=== PATIENT | female | born 1960 | race Caucasian/White ===

== ENCOUNTER 2019-09-17 10:29 | Day surgery (SDC) | payer OTHER ==
[2019-09-16 17:24] VITALS: BMI 24.0
[2019-09-17 13:13] VITALS: TEMP 98.1
[2019-09-17 15:07] VITALS: BP 133/61; PULSE 69
--- NOTE | 2019-09-20 16:39 | PATH ---
Surgical Pathology Report Patient Name: SCOTT BARROW [facility]. Rec. #: [id number] /Age/Gender: 1960 (Age: 59) / F Account: [id number] Location: ASU-ENDOSCOPY Taken: 09/17/2019 Received: 09/17/2019 Reported: 09/20/2019 Physicians: Willa Mcmullen M.D. Specimen(s) Received CECUM POLYP Clinical History Screening colonoscopy Postoperative diagnosis: Colon polyp, diverticulosis Final Diagnosis CECUM, POLYP, BIOPSY: POLYPOID COLONIC MUCOSA WITH MILD SUPERFICIAL HYPERPLASTIC FEATURES. Electronically Signed Yodit Caceres M.D. Gross Description Received in formalin, labeled "cecum polyp biopsy" is a hackett, irregular portion of soft tissue measuring 0.3 cm. in greatest dimension. The specimen is submitted in toto in one cassette. /09/17/201909/17/2019
== END 2019-09-17 14:00 | disposition home or self-care (01) ==
LOC: JASU-ENDO 10:29
PROVIDERS: ATTEND Internal Medicine Gastroenterology
PROC: 0DBE8ZX Excision of Large Intestine, Via Natural or Artificial Opening Endoscopic, Diagnostic (ICD-10-PCS; principal; 2019-09-17 11:00)
DX: Z12.11 Encounter for screening for malignant neoplasm of colon (principal); D12.6 Benign neoplasm of colon, unspecified; K57.30 Diverticulosis of large intestine without perforation or abscess without bleeding; K64.8 Other hemorrhoids
CPT/HCPCS: 88305-TC

== ENCOUNTER 2020-07-13 09:16 | Inpatient (IN) | payer OTHER ==
--- NOTE | 2020-07-13 09:27 | PDOC ---
History of Present Illness - General Chief Complaint: Abnormal Lab Results (Outside) Stated Complaint: SENT BY PCP Time Seen by Provider: 07/13/20 09:26 - History of Present Illness Initial Comments: 59 YOF h/o ESRD presents to ER from [employer] for laboratory abnormalities. Patient has ESRD and is scheduled to begin dialysis however yesterday presented to [employer] [facility], got labs showing anemia and uremia. Dr. Foley sent patient to ER for correction of these issues. Patient denies CP, SOB, N/V/D, fever or chills. ROS otherwise negative Past History - Medical History Allergies/Adverse Reactions: Allergies Allergy/AdvReac Type Severity Reaction Status Date / Time adhesive tape Allergy Severe Rash Verified 07/13/20 09:18 erythromycin base AdvReac Severe Verified 07/13/20 09:18 [Erythromycin Base] Home Medications: Ambulatory Orders Labetalol HCl 200 mg PO TID 05/06/12 Nifedipine [Procardia Xl] 30 mg PO DAILY 05/06/12 Tacrolimus 5 mg PO BID 05/06/12 predniSONE [Deltasone -] 5 mg PO DAILY 05/06/12 Glipizide 5 mg PO BID 09/17/19 Cinacalcet HCl [Sensipar -] 30 mg PO PRN 07/13/20 Anemia: Yes (YEARS AGO) Asthma: No Cancer: Yes (RENAL CANCER) Cardiac Disorders: No CVA: No COPD: No CHF: No Dementia: No Diabetes: Yes (NIDD) GI Disorders: No Disorders: Yes HTN: Yes Hypercholesterolemia: Yes Liver Disease: No Seizures: No Thyroid Disease: Yes (HYPOTHYROIDISM) - Surgical History Abdominal Surgery: No Appendectomy: No Cardiac Surgery: No Cholecystectomy: No Lung Surgery: No Neurologic Surgery: No Orthopedic Surgery: No - Psycho-Social/Smoking History Smoking History: Never smoked Have you smoked in the past 12 months: No - Substance Abuse Hx (Audit-C & DAST Scrn) How often the patient has a drink containing alcohol: Never Score: In Men: 4 or > Positive; In Women: 3 or > Positive: 0 Screen Result (Pos requires Nsg. Audit-10AR): Negative *Physical Exam - Vital Signs Last Vital Signs Temp Pulse Resp BP Pulse Ox 98.3 F 77 18 112/58 L 99 07/13/20 09:19 07/13/20 09:19 07/13/20 09:19 07/13/20 09:19 07/13/20 09:19 - Physical Exam General Appearance: Yes: Nourished, Appropriately Dressed HEENT: positive: EOMI, WINIFRED, Normal ENT Inspection, Normal Voice Neck: positive: Trachea midline, Normal Thyroid Respiratory/Chest: positive: Lungs Clear, Normal Breath Sounds Cardiovascular: positive: Regular Rhythm, Regular Rate, S1, S2 Gastrointestinal/Abdominal: positive: Normal Bowel Sounds, Flat, Soft Musculoskeletal: positive: Normal Inspection Extremity: positive: Normal Capillary Refill, Normal Inspection Integumentary: positive: Normal Color, Dry, Warm Neurologic: positive: tearer press clipping II-XII NML intact, Fully Oriented, Alert, Normal Mood/Affect, Normal Response, Motor Strength 01/31 ED Treatment Course - LABORATORY CBC & Chemistry Diagram: 07/13/20 09:42 07/13/20 09:44 Medical Decision Making - Medical Decision Making 59 YOF h/o ESRD presents for laboratory abnormalities - vitals wnl - exam unremarkable - labs, admit to med surg Discharge - Discharge Information Problems reviewed: Yes Clinical Impression/Diagnosis: Uremia - Follow up/Referral - Patient Discharge Instructions - Post Discharge Activity
[2020-07-13 09:52] LABS: VENOUS BASE EXCESS -12.7 mmol/L (-2-2); VENOUS O2 SATURATION 73.5 % (70-80); VENOUS PCO2 35.4 mmHg (38-52); VENOUS PH 7.217 (7.310-7.410)
[2020-07-13 10:00] LABS: BASO % 0.7 % (0-2.0); EOS % 1.8 % (0-4.5); HEMATOCRIT 26.6 % (32.4-45.2); HEMOGLOBIN 8.6 GM/dL (10.7-15.3); LYMPH % 23.4 % (8-40); MCH 29.1 pg (25.7-33.7); MCHC 32.5 g/dl (32.0-36.0); MEAN CELL VOLUME 89.3 fl (80-96); MONO % 5.6 % (3.8-10.2); NEUT % 68.5 % (42.8-82.8); PLATELET COUNT 234 K/MM3 (134-434); RBC 2.97 M/mm3 (3.60-5.2); RDW 14.3 % (11.6-15.6); WHITE BLOOD COUNT 10.7 K/mm3 (4.0-10.0)
[2020-07-13 10:03] LABS: INR 0.91 (0.83-1.09)
[2020-07-13 10:06] LABS: ACTIVATED PTT 26.3 SECONDS (25.2-36.5)
[2020-07-13 10:31] LABS: ALBUMIN 3.2 g/dl (3.4-5.0); BILIRUBIN,TOTAL 0.6 mg/dL (0.2-1); BLOOD UREA NITROGEN 79.8 mg/dL (7-18); CALCIUM 7.9 mg/dL (8.5-10.1); CREATININE 5.3 mg/dL (0.55-1.3); MAGNESIUM 2.4 mg/dL (1.8-2.4); PHOSPHOROUS 5.2 mg/dL (2.5-4.9); POTASSIUM 4.5 mmol/L (3.5-5.1); TOT PROT 6.5 g/dl (6.4-8.2); URIC ACID 6.2 mg/dL (2.6-7.2)
--- NOTE | 2020-07-13 10:45 | PDOC ---
Documentation entered by Raoul Alfaro SCRIBE, acting as scribe for Fernando Overton MD. Fernando Overton MD: This documentation has been prepared by the dixieeDominic Angel, SCRIBE, under my direction and personally reviewed by me in its entirety. I confirm that the documentation accurately reflects all work, treatment, procedures, and medical decision making performed by me. Attending Attestation - Resident Resident Name: NaveenMelchor gómez - ED Attending Attestation I have performed the following: I have examined & evaluated the patient, The case was reviewed & discussed with the resident, I agree w/resident's findings & plan, Exceptions are as noted - HPI HPI: 07/13/20 10:34 The patient is a 59 year old female with a significant past medical history of renal cancer, NIDD, hypothyroidism, bilateral renal transplant 10 years ago who was sent to the ED by PCP for dialysis. The patients kidney activity has been monitored by and noticed the patient needed dialysis due to renal failure. The patient comes in with no complaints, no pain at transplant sites or leg swelling. The patient denies SOB, fever/chills, N/V/D, cough, chest pain, or abdominal pain. PCP: Ade Smith 07/13/20 10:34 - Physicial Exam PE: 07/13/20 10:25 GENERAL: The patient is awake, alert, and fully oriented, Nontoxic - in no acute distress. HEAD: Normocephalic, atraumatic. EYES: extraocular movements intact, sclera anicteric, conjunctiva clear. ENT: Normal voice, Moist mucous membranes. NECK: Normal range of motion, supple LUNGS: Breath sounds equal, clear to auscultation bilaterally. No wheezes, no rhonchi, no rales. HEART: Regular rate and rhythm, normal S1 and S2 without murmur, rub or gallop. ABDOMEN: Soft, nontender, No guarding, no rebound. No CVA tenderness EXTREMITIES: Normal range of motion, no edema. NEUROLOGICAL: No facial assymetry, Normal speech, PSYCH: Normal mood, normal affect. SKIN: Warm, Dry, normal turgor, - Medical Decision Making 07/13/20 10:25 We will check the patient's electrolytes to rule out metabolic derangement EKG to screen for hyperkalemia No signs of fluid overload, pulmonary edema If metabolically deranged anticipate admission for dialysis Heart Score/ECG Review - ECG Impressions Comment:: 07/13/20 10:30 Twelve-lead EKG was performed and reviewed by me. There is normal sinus rhythm with a normal rate. Rate of 76 Abnormal R wave progression
--- NOTE | 2020-07-13 11:55 | SPA.PREOP ---
- PRE-OP NOTE Dx: CKD. h/o bilateral renal transplant 10 years ago Planned Procedure: Permacath Insertion 07/13/2020 Surgeon: Robby Godinez Last Vital Signs Temp Pulse Resp BP Pulse Ox 98.3 F 71 18 134/74 98 07/13/20 09:19 07/13/20 10:25 07/13/20 10:25 07/13/20 10:25 07/13/20 10:25 Lab Results WBC 10.7 K/mm3 (4.0-10.0) H 07/13/20 09:42 RBC 2.97 M/mm3 (3.60-5.2) L 07/13/20 09:42 Hgb 8.6 GM/dL (10.7-15.3) L 07/13/20 09:42 Hct 26.6 % (32.4-45.2) L D 07/13/20 09:42 MCV 89.3 fl (80-96) 07/13/20 09:42 MCHC 32.5 g/dl (32.0-36.0) 07/13/20 09:42 RDW 14.3 % (11.6-15.6) 07/13/20 09:42 Plt Count 234 K/MM3 (134-434) D 07/13/20 09:42 INR 0.91 (0.83-1.09) 07/13/20 09:42 Sodium 140 mmol/L (136-145) 07/13/20 09:44 Potassium 4.5 mmol/L (3.5-5.1) 07/13/20 09:44 Chloride 114 mmol/L (98-107) H 07/13/20 09:44 Carbon Dioxide 16 mmol/L (21-32) L 07/13/20 09:44 Anion Gap 10 MMOL/L (8-16) 07/13/20 09:44 BUN 79.8 mg/dL (7-18) H 07/13/20 09:44 Creatinine 5.3 mg/dL (0.55-1.3) H 07/13/20 09:44 Random Glucose 170 mg/dL (74-106) H 07/13/20 09:44 Calcium 7.9 mg/dL (8.5-10.1) L 07/13/20 09:44 Blood Type O NEGATIVE 07/13/20 09:42 Antibody Screen Negative 07/13/20 09:42 Laboratory Tests 07/13/20 11:45 SARS-CoV-2 (PCR) Pending - ASSESSMENT/PLAN 1. NPO 2. GI/DVT PPX 3. Medical optimization / clearance 4. Consent to be obtained by surgeon after risks, benefits and alternatives discussed with patient and or Health Care Proxy. 5. Rapid Covid test pending Visit type - Case Type Case Type: ED Admission - Emergency Emergency Visit: Yes ED Registration Date: 07/13/20 Care time: The patient presented to the Emergency Department on the above date and was hospitalized for further evaluation of their emergent condition. - New patient This patient is new to me today: Yes Date on this admission: 07/13/20
--- NOTE | 2020-07-13 11:57 | HP ---
CHIEF COMPLAINT: generalized weakness PCP: Nephrology: Dr. Ade Foley HISTORY OF PRESENT ILLNESS: Patient is a 59 year old female with history of ESRD (s/p renal transplant) renal cell carcinoma (s/p partial nephrectomy), diabetes mellitus (non insulin dependent) hypertension, anemia, ?hypothyroidism, presents at behest of her division chief Dr. Bella to initiate hemodialysis. Patient had labs drawn in office concerning for uremia. She endorses some fatigue, however otherwise states she is in usual state of health. Denies subjective fevers, chills. ER course was notable for: (1) Nephrology consult (2) (3) Recent Travel: denies PAST MEDICAL HISTORY: ESRD, renal cell carcinoma, diabetes mellitus, hypertension, anemia PAST SURGICAL HISTORY: renal transplant,, partial nephrectomy, hysterectomy Social History: Lives at home with family. Independent in activities of daily living Smoking: Denies Alcohol:Denies Drugs: Denies Allergies adhesive tape Allergy (Severe, Verified 07/13/20 09:18) Rash erythromycin base [Erythromycin Base] Adverse Reaction (Severe, Verified 07/13/20 09:18) UPSET STOMACH HOME MEDICATIONS: Home Medications Medication Instructions Recorded Labetalol HCl 200 mg PO TID 05/06/12 Nifedipine [Procardia Xl] 30 mg PO DAILY 05/06/12 Tacrolimus 5 mg PO BID 05/06/12 predniSONE [Deltasone -] 5 mg PO DAILY 05/06/12 Glipizide 5 mg PO BID 09/17/19 Cinacalcet HCl [Sensipar -] 30 mg PO PRN 07/13/20 REVIEW OF SYSTEMS CONSTITUTIONAL: Admits: fatigue. Absent: fever, chills, diaphoresis, malaise, loss of appetite, weight change HEENT: Absent: rhinorrhea, nasal congestion, throat pain, throat swelling, difficulty swallowing, mouth swelling, ear pain, eye pain, visual changes CARDIOVASCULAR: Absent: chest pain, syncope, palpitations, irregular heart rate, lightheadedness, peripheral edema RESPIRATORY: Absent: cough, shortness of breath, dyspnea with exertion, orthopnea, wheezing, stridor, hemoptysis GASTROINTESTINAL: Absent: abdominal pain, abdominal distension, nausea, vomiting, diarrhea, constipation, melena, hematochezia GENITOURINARY: Absent: dysuria, frequency, urgency, hesitancy, hematuria, flank pain, genital pain MUSCULOSKELETAL: Absent: myalgia, arthralgia, joint swelling, back pain, neck pain SKIN: Absent: rash, itching, pallor HEMATOLOGIC/IMMUNOLOGIC: Absent: easy bleeding, easy bruising, lymphadenopathy, frequent infections ENDOCRINE: Absent: unexplained weight gain, unexplained weight loss, heat intolerance, cold intolerance NEUROLOGIC: Absent: headache, focal weakness or paresthesias, dizziness, unsteady gait, seizure, mental status changes, bladder or bowel incontinence PSYCHIATRIC: Absent: anxiety, depression, suicidal or homicidal ideation, hallucinations. PHYSICAL EXAMINATION Vital Signs - 24 hr 07/13/20 07/13/20 09:19 10:25 Temperature 98.3 F Pulse Rate 77 Pulse Rate [ 71 Apical] Respiratory 18 18 Rate Blood Pressure 112/58 L Blood Pressure 134/74 [Right Arm] O2 Sat by Pulse 99 98 Oximetry (%) GENERAL: Awake, alert, and fully oriented, in no acute distress. HEAD: Normal with no signs of trauma. EYES: Pupils equal, round and reactive to light, extraocular movements intact, sclera anicteric, conjunctiva clear. No lid lag. EARS, NOSE, THROAT: Ears normal, nares patent, oropharynx clear without exudates. Moist mucous membranes. NECK: Normal range of motion, supple without lymphadenopathy, JVD, or masses. LUNGS: Breath sounds equal, clear to auscultation bilaterally. No wheezes, and no crackles. No accessory muscle use. HEART: Regular rate and rhythm, normal S1 and S2 without murmur, rub or gallop. ABDOMEN: Soft, nontender, not distended, normoactive bowel sounds, no guarding, no rebound, no masses. No hepatomegaly or splenomegaly. MUSCULOSKELETAL: Normal range of motion at all joints. No bony deformities or tenderness. No CVA tenderness. UPPER EXTREMITIES: 2+ pulses, warm, well-perfused. No cyanosis. No clubbing. No peripheral edema. LOWER EXTREMITIES: 2+ pulses, warm, well-perfused. No calf tenderness. No peripheral edema. NEUROLOGICAL: Cranial nerves II-XII intact. Normal speech. Normal gait. PSYCHIATRIC: Cooperative. Good eye contact. Appropriate mood and affect. SKIN: Warm, dry, normal turgor, no rashes or lesions noted, normal capillary refill. Laboratory Results - last 24 hr 07/13/20 07/13/20 07/13/20 09:42 09:42 09:42 WBC 10.7 H RBC 2.97 L Hgb 8.6 L Hct 26.6 L D MCV 89.3 MCH 29.1 MCHC 32.5 RDW 14.3 Plt Count 234 D MPV 8.0 D Absolute Neuts (auto) 7.4 Neutrophils % 68.5 Lymphocytes % 23.4 Monocytes % 5.6 Eosinophils % 1.8 Basophils % 0.7 Nucleated RBC % 0 PT with INR 11.00 INR 0.91 PTT (Actin FS) 26.3 VBG pH 7.217 L POC VBG pCO2 35.4 L POC VBG pO2 45.8 VBG HCO3 14.1 L VBG O2 Sat (Mitali) 73.5 VBG Base Excess -12.7 L Sodium Potassium Chloride Carbon Dioxide Anion Gap BUN Creatinine Est GFR (CKD-EPI)AfAm Est GFR (CKD-EPI)NonAf Random Glucose Lactic Acid Uric Acid Calcium Phosphorus Magnesium Iron TIBC Iron Saturation Unsaturated IBC Total Bilirubin AST ALT Alkaline Phosphatase Total Protein Albumin Blood Type Antibody Screen 07/13/20 07/13/20 07/13/20 09:42 09:44 09:44 WBC RBC Hgb Hct MCV MCH MCHC RDW Plt Count MPV Absolute Neuts (auto) Neutrophils % Lymphocytes % Monocytes % Eosinophils % Basophils % Nucleated RBC % PT with INR INR PTT (Actin FS) VBG pH POC VBG pCO2 POC VBG pO2 VBG HCO3 VBG O2 Sat (Mitali) VBG Base Excess Sodium 140 Potassium 4.5 Chloride 114 H Carbon Dioxide 16 L Anion Gap 10 BUN 79.8 H Creatinine 5.3 H Est GFR (CKD-EPI)AfAm 9.44 Est GFR (CKD-EPI)NonAf 8.15 Random Glucose 170 H Lactic Acid 1.0 Uric Acid 6.2 Calcium 7.9 L Phosphorus 5.2 H Magnesium 2.4 Iron 61 TIBC 203 L Iron Saturation 30 Unsaturated IBC 142 L Total Bilirubin 0.6 AST 24 ALT 74 H Alkaline Phosphatase 321 H Total Protein 6.5 Albumin 3.2 L Blood Type O NEGATIVE Antibody Screen Negative ASSESSMENT/PLAN: Patient is a 59 year old female with history of ESRD (s/p renal transplant) renal cell carcinoma (s/p partial nephrectomy), diabetes mellitus (non insulin dependent) hypertension, anemia, ?hypothyroidism, presents at behest of her division chief Dr. Bella to initiate hemodialysis. ESRD -Nephrology consult appreciated. Patient will be initiated for first session hemodialysis today -Vascular surgery consult (Dr. Godinez) for permacath placement -Maintain NPO, pending surgical evaluation -NAGMA noted, will initiate bicarbonate in normal saline -Continue Tacrolimus, Prednisone -Pantoprazole 40mg IV daily while receiving steroids, and NPO Fatigue -In setting of leukocytosis, however patient is afebrile. Well, nontoxic appearing. -Chest radiograph does not reveal acute infiltrates -Obtain urinalysis, urine culture -Monitoring off antibiotics for now Normocytic anemia -At baseline (reportedly Hgb 8.5 in 02/2020 outpatient) -Colonscopy last year with Dr. Mcmullen reportedly revealed only a polyp which patient believes was benign. She denies any hematochezia, melenic stools. -Follow iron studies, CBC. Diabetes mellitus -Insulin sliding scale ACHS -Fingerstick blood glucose ACHS Hypertension -Continue home Nifedipine, Labetalol FEN -Bicarbonate drip, pending hemodialysis -Follow BMP -NPO, pending surgical evaluation Prophylaxis -SCDs, pending surgical evaluation Disposition Admit to medical surgical floor Family Medical History Family History: Unremarkable Visit type - Emergency Visit Emergency Visit: Yes ED Registration Date: 07/13/20 Care time: The patient presented to the Emergency Department on the above date and was hospitalized for further evaluation of their emergent condition. - New Patient This patient is new to me today: Yes Date on this admission: 07/13/20 - Critical Care Critical Care patient: No ATTENDING PHYSICIAN STATEMENT I saw and evaluated the patient. I reviewed the resident's note and discussed the case with the resident. I agree with the resident's findings and plan as documented. SUBJECTIVE: OBJECTIVE: ASSESSMENT AND PLAN:
[2020-07-13] MEDS ORDERED: PANTOPRAZOLE SODIUM 40 MG/100 ML BAG IVPB ONE (11:59)
[2020-07-13] MEDS ORDERED: SODIUM BICARBONATE 8.4% - 150 MEQ in DEXTROSE 5%-WATER - 1,000 ML IV SCH (12:00)
[2020-07-13] MEDS ORDERED: TACROLIMUS ANHYDROUS 1 MG CAPSULE PO SCH (12:00)
[2020-07-13] MEDS ORDERED: predniSONE 5 MG TABLET (UD) PO SCH (12:00)
[2020-07-13] MEDS ORDERED: PANTOPRAZOLE SODIUM 40 MG VIAL IVPUSH SCH (12:00)
[2020-07-13] MEDS ORDERED: DEXTROSE 5%-WATER - 1,000 ML with SODIUM BICARBONATE 8.4% - 150 MEQ IV SCH (12:00)
--- NOTE | 2020-07-13 12:25 | CON.NEP ---
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 Seen and examined at the bedside. She denies any pain, shortness of breath, nausea or vomiting. Has some anorexia and weakness. Making less urine now. Denies any leg swelling. No flank pain. Was been taking tacrolimus and prednisone. Has old AVF that is no longer working. - History Source History Provided By: Patient Limitations to Obtaining History: No Limitations - Alcohol/Substance Use Hx Alcohol Use: No - Smoking History Smoking history: Never smoked Have you smoked in the past 12 months: No Home Medications - Allergies Allergies/Adverse Reactions: Allergies Allergy/AdvReac Type Severity Reaction Status Date / Time adhesive tape Allergy Severe Rash Verified 07/13/20 09:18 erythromycin base AdvReac Severe Verified 07/13/20 09:18 [Erythromycin Base] - Home Medications Home Medications: Ambulatory Orders Labetalol HCl 200 mg PO TID 05/06/12 Nifedipine [Procardia Xl] 30 mg PO DAILY 05/06/12 Tacrolimus 5 mg PO BID 05/06/12 predniSONE [Deltasone -] 5 mg PO DAILY 05/06/12 Glipizide 5 mg PO BID 09/17/19 Cinacalcet HCl [Sensipar -] 30 mg PO PRN 07/13/20 Family Medical History Family History: Unremarkable Review of Systems - Review of Systems Constitutional: reports: Loss of Appetite, Weakness. denies: Chills, Fever Eyes: reports: No Symptoms HENT: reports: No Symptoms Neck: reports: No Symptoms Cardiovascular: reports: No Symptoms Respiratory: reports: No Symptoms Gastrointestinal: reports: No Symptoms Genitourinary: reports: No Symptoms Musculoskeletal: reports: No Symptoms Integumentary: reports: No Symptoms Neurological: reports: No Symptoms Nephrology Consult - Height Height: 5 ft 1 in - Weight Weight: 57.606 kg - BMI Body Mass Index (BMI): 24.0 - Lab Results CBC,BMP: CBC, BMP 07/13/20 09:42 07/13/20 09:44 Anion Gap: Anion Gap Anion Gap 10 MMOL/L (8-16) 07/13/20 09:44 - Physical Examination Vital Signs: Vital Signs Temperature 98.0 F 07/13/20 12:17 Pulse Rate 71 07/13/20 12:17 Respiratory Rate 18 07/13/20 12:17 Blood Pressure 141/74 07/13/20 12:17 O2 Sat by Pulse Oximetry (%) 98 07/13/20 12:17 Constitutional: Yes: No Distress, Calm Eyes: Yes: Conjunctiva Clear HENT: Yes: Atraumatic, Normocephalic Neck: Yes: Supple Cardiovascular: Yes: Regular Rate and Rhythm. No: Murmur, Rub Respiratory: Yes: Regular, CTA Bilaterally. No: Rales, Rhonchi, SOB Gastrointestinal: Yes: Soft. 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 1. 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 Anemia in CKD. 3. Renal Transplant 4. Leukocytosis w/o fever 5. Hypertension 6. DM type 2 Pt is planned for tunneled catheter insertion later this afternoon. Keep NPO. Will arrange for initial HD treatment following catheter placement this afternoon. Start bicarb gtt for Metabolic acidosis, can stop after dialysis. Renal diet once out of the OR. Continue Tacrolimus and prednisone for now. Check US of the transplanted kidneys. Continue home antihypertensives Continue Sensipar 30mg daily Check UA and urine culture Will need outpatient HD unit placement at [facility]. Thank you Otoniel Morris DO
[2020-07-13] MEDS ORDERED: SODIUM CHLORIDE 250 ML IV PRN ×2 (12:33→16:33)
[2020-07-13] MEDS ORDERED: EPOETIN ALFA 20,000 UNIT/1 ML VIAL IVPUSH ONE ×2 (12:33→17:30)
--- NOTE | 2020-07-13 13:34 | EKG ---
Test Reason : Blood Pressure : / mmHG Vent. Rate : 076 BPM Atrial Rate : 076 BPM P-R Int : 154 ms QRS Dur : 084 ms QT Int : 408 ms P-R-T Axes : 065 023 067 degrees QTc Int : 459 ms NORMAL SINUS RHYTHM SEPTAL INFARCT (CITED ON OR BEFORE 16-AUG-2008) ABNORMAL ECG WHEN COMPARED WITH ECG OF 02-MAY-2012 09:54, NONSPECIFIC T WAVE ABNORMALITY, WORSE IN INFERIOR LEADS NONSPECIFIC T WAVE ABNORMALITY NOW EVIDENT IN LATERAL LEADS QT HAS LENGTHENED Confirmed by YADIEL MARTINEZ MD ([id number]) on 07/13/2020 1:34:07 PM Referred By: Confirmed By:YADIEL MARTINEZ MD
[2020-07-13] MEDS ORDERED: HEPARIN NA (PORCINE) 5,000 UNITS/ML 1ML VIAL ONE (14:08)
[2020-07-13] MEDS ORDERED: LIDOCAINE HCL 1%, 10 MG/ML (20ML VIAL) ONE (14:09)
[2020-07-13] MEDS ORDERED: LIDOCAINE HCL 1%, 10 MG/ML (20ML VIAL) NR ONE (15:58)
[2020-07-13] MEDS ORDERED: ceFAZolin SODIUM 1 GM VIAL IVPB ONE (15:58)
[2020-07-13] MEDS ORDERED: LABETALOL HCL 5 MG/1 ML (100MG/20 ML VIAL) IVPUSH ONE (16:19)
[2020-07-13] MEDS ORDERED: ONDANSETRON 4 MG/2 ML VIAL IVPUSH PRN (16:19)
--- NOTE | 2020-07-13 16:23 | CONSULT ---
Consult - text type - Consultation Consultation Note: 59 year old woman with ESRD and failed renal transplant. She requires access for urgent hemodialysis. PMH reviewed. PE: NAD HEENT WNL, Neck supple. no JVD CHest clear Cor RRR Abd soft Ext both arms with old scars from AV access Imp: ESRD Plan: Placement Permacath today. Evaluate options for new access and plan outpatient surgery
--- NOTE | 2020-07-13 16:23 | OP ---
Operative Note - Note: Operative Date: 07/13/20 Pre-Operative Diagnosis: ESRD Operation: Placement Permacath Findings: Patent right IJV Implants: 19 cm Permacath Post-Operative Diagnosis: Same as Pre-op Surgeon: Robby Godinez Anesthesiologist/CLOTH ROLL WINDER: Amanuel Parekh Anesthesia: MAC
[2020-07-13] MEDS ORDERED: INSULIN SLIDING SCALE (NOVOLOG) 1 VIAL SQ SCH (16:30)
[2020-07-13] MEDS ORDERED: INSULIN (NOVOLOG) ASPART 100 UNITS/ML 10ML VIAL SQ ONE ×2 (17:15)
[2020-07-13] MEDS: INSULIN SLIDING SCALE (NOVOLOG) 1 VIAL SQ SCH (17:15)
--- NOTE | 2020-07-13 17:40 | PN ---
Teaching Attending Note Name of Resident: Froylan Pinto ATTENDING PHYSICIAN STATEMENT I saw and evaluated the patient. I reviewed the resident's note and discussed the case with the resident. I agree with the resident's findings and plan as documented. SUBJECTIVE: Patient seen and examined at bedside, admitted for fatigue, CRIS on CKD w/ uremia sent from [facility] office, requiring HD, vascular surgery/renal on board. VSS. OBJECTIVE: GENERAL: Awake, alert, and fully oriented, in no acute distress. HEAD: Normal with no signs of trauma. EYES: Pupils equal, round and reactive to light, extraocular movements intact, sclera anicteric, conjunctiva clear. No lid lag. EARS, NOSE, THROAT: Ears normal, nares patent, oropharynx clear without exudates. Moist mucous membranes. NECK: Normal range of motion, supple without lymphadenopathy, JVD, or masses. LUNGS: Breath sounds equal, clear to auscultation bilaterally. No wheezes, and no crackles. No accessory muscle use. HEART: Regular rate and rhythm, normal S1 and S2 without murmur, rub or gallop. ABDOMEN: Soft, nontender, not distended, normoactive bowel sounds, no guarding, no rebound, no masses. No hepatomegaly or splenomegaly. MUSCULOSKELETAL: Normal range of motion at all joints. No bony deformities or tenderness. No CVA tenderness. UPPER EXTREMITIES: 2+ pulses, warm, well-perfused. No cyanosis. No clubbing. No peripheral edema. LOWER EXTREMITIES: 2+ pulses, warm, well-perfused. No calf tenderness. No peripheral edema. NEUROLOGICAL: Cranial nerves II-XII intact. Normal speech. Normal gait. PSYCHIATRIC: Cooperative. Good eye contact. Appropriate mood and affect. SKIN: Warm, dry, normal turgor, no rashes or lesions noted, normal capillary refill. Home Medications Medication Instructions Recorded Labetalol HCl 200 mg PO TID 05/06/12 Nifedipine [Procardia Xl] 30 mg PO BID 05/06/12 Tacrolimus 4 mg PO AM 05/06/12 predniSONE [Deltasone -] 5 mg PO DAILY 05/06/12 Glipizide 5 mg PO DAILY 09/17/19 Cinacalcet HCl [Sensipar -] 30 mg PO PRN 07/13/20 Atorvastatin Ca [Lipitor] 20 mg PO DAILY 07/14/20 Tacrolimus 5 mg HS 07/14/20 levoFLOXacin [Levaquin -] 250 mg PO Q48H #4 tablet 07/14/20 ASSESSMENT AND PLAN: 59 F CKD/ESRD requiring HD HTN HLD T2DM Uremia Anemia RCC s/p nephrectomy s/p renal transplant Plan: Hold IVF Restart home BP medications Tele monitoring FOBT for anemia, transfuse w/ goal of >7.0 Cont. Bicarb supplementation Monitor AG and renal function Vascular consult Renal following
[2020-07-13] MEDS ORDERED: ACETAMINOPHEN 325 MG TABLET (FP) PO PRN (17:45)
[2020-07-13] MEDS ORDERED: oxyCODONE HCL 5 MG TABLET PO PRN (17:45)
--- NOTE | 2020-07-13 19:26 | OP ---
DATE OF OPERATION: 07/13/2020 SURGEON: Robby Godinez MD. PROCEDURE: Placement of PermCath. PREOPERATIVE DIAGNOSIS: Renal failure. POSTOPERATIVE DIAGNOSIS: Renal failure. ANESTHESIA: Fractional. ANESTHESIOLOGIST: Amanuel Parekh MD. OPERATIVE PROCEDURE: Following routine patient identification with side and site verification, intravenous sedation was established. The right neck and chest were prepped with ChloraPrep. Timeout was performed. 1% lidocaine was infiltrated in the right lateral neck. Using ultrasound guidance, the right internal jugular vein was cannulated with a micropuncture needle. A wire was passed proximally, and the needle was exchanged for a 5 [place] catheter. Additional lidocaine was infiltrated in the chest wall and a stab wound made. A 19-cm tip-to-cuff PermCath was advanced with a tunneler from chest to neck. A wire was advanced under fluoroscopic guidance through the right atrium into the inferior vena cava. The tract around the wire was dilated, and the introducer was placed into the superior vena cava. The dilator and wire were removed. The catheter was advanced through the introducer, and the tip positioned in the right atrium. The introducer was peeled away. Each lumen was aspirated to check blood flow, and then the catheter was filled with heparin saline solution. The neck wound was closed with a subcuticular suture of 3-0 Vicryl, and the catheter was sutured to the skin at the exit site with 3-0 nylon. Sterile dressing was applied, and the patient was taken to the recovery room for a chest x-ray. Joshua [id number] MTDD
[2020-07-13] MEDS: TACROLIMUS ANHYDROUS 1 MG CAPSULE PO SCH (21:48)
[2020-07-14 02:49] VITALS: BMI 24.4
[2020-07-14] MEDS ORDERED: SODIUM BICARBONATE 8.4% - 150 MEQ in DEXTROSE 5%-WATER - 1,000 ML IV SCH (03:00)
[2020-07-14] MEDS ORDERED: PNEUMOC 13-VAL CONJ-DIP CRM/PF 0.5 ML DISP.SYRIN IM ONE (06:00)
[2020-07-14] MEDS: INSULIN SLIDING SCALE (NOVOLOG) 1 VIAL SQ SCH ×2 (06:06→12:57)
[2020-07-14 09:02] LABS: HEMATOCRIT 26.3 % (32.4-45.2); HEMOGLOBIN 8.7 GM/dL (10.7-15.3); MCHC 33.2 g/dl (32.0-36.0); MEAN CELL VOLUME 87.5 fl (80-96); MEAN PLT VOLUME 8.1 fl (7.5-11.1); PLATELET COUNT 223 K/MM3 (134-434); RDW 13.6 % (11.6-15.6); WHITE BLOOD COUNT 10.4 K/mm3 (4.0-10.0)
--- NOTE | 2020-07-14 09:06 | PN ---
Progress Note (short form) - Note Progress Note: Surgery: Pt without any complaints. Vital Signs Period Temp Pulse Resp BP Sys/Villanueva Pulse Ox Last 24 Hr 97.4 F-99.1 F 60-88 14-20 112-171/58-90 95-100 GEN: A&0x3, NAD Right chest: permacath dressing c/d/i A/p: 59 yo female s/p Right IJ permcath, POD#1 HD treatment completed last pm without any issues, pt tolerated the treatment well. Follow up with Dr. Godinez in office as outpt for any further vascular/HD needs.
[2020-07-14 09:18] LABS: BILIRUBIN,TOTAL 0.5 mg/dL (0.2-1); CREATININE 3.6 mg/dL (0.55-1.3); PHOSPHOROUS 4.8 mg/dL (2.5-4.9); POTASSIUM 3.7 mmol/L (3.5-5.1); TOT PROT 5.9 g/dl (6.4-8.2)
[2020-07-14 09:33] LABS: BLOOD UREA NITROGEN 39.3 mg/dL (7-18)
[2020-07-14] MEDS ORDERED: PT OWN MED DRAWER 7, Y5N ONE (09:41)
[2020-07-14] MEDS ORDERED: SODIUM CHLORIDE 250 ML IV PRN (09:46)
[2020-07-14] MEDS ORDERED: NIFEdipine E.R. 30 MG TABLET PO SCH ×2 (10:00)
[2020-07-14] MEDS ORDERED: PNEUMOCOCCAL 23 VACCINE 0.5 ML VIAL IM ONE (10:00)
[2020-07-14] MEDS ORDERED: predniSONE 5 MG TABLET (UD) PO SCH (10:00)
--- NOTE | 2020-07-14 12:44 | PN ---
Teaching Attending Note Name of Resident: Leydi Pablo ATTENDING PHYSICIAN STATEMENT I saw and evaluated the patient. I reviewed the resident's note and discussed the case with the resident. I agree with the resident's findings and plan as documented. SUBJECTIVE: pt seen and examined, was having HD OBJECTIVE: Last Vital Signs Temp Pulse Resp BP Pulse Ox 98.8 F 78 18 148/77 99 07/14/20 10:05 07/14/20 12:10 07/14/20 12:10 07/14/20 12:10 07/14/20 09:38 GENERAL: Awake, alert, and fully oriented, in no acute distress. Perm-a-cath placed LUNGS: Breath sounds equal, clear to auscultation bilaterally. No wheezes, and no crackles. No accessory muscle use. HEART: Regular rate and rhythm, normal S1 and S2 ABDOMEN: Soft, nontender, not distended LOWER EXTREMITIES: 2+ pulses, warm, well-perfused. No calf tenderness. No peripheral edema. CBCD WBC 10.4 K/mm3 (4.0-10.0) H 07/14/20 08:03 RBC 3.00 M/mm3 (3.60-5.2) L 07/14/20 08:03 Hgb 8.7 GM/dL (10.7-15.3) L 07/14/20 08:03 Hct 26.3 % (32.4-45.2) L 07/14/20 08:03 MCV 87.5 fl (80-96) 07/14/20 08:03 MCHC 33.2 g/dl (32.0-36.0) 07/14/20 08:03 RDW 13.6 % (11.6-15.6) 07/14/20 08:03 Plt Count 223 K/MM3 (134-434) 07/14/20 08:03 MPV 8.1 fl (7.5-11.1) 07/14/20 08:03 CMP Sodium 142 mmol/L (136-145) 07/14/20 08:03 Potassium 3.7 mmol/L (3.5-5.1) 07/14/20 08:03 Chloride 106 mmol/L (98-107) 07/14/20 08:03 Carbon Dioxide 28 mmol/L (21-32) 07/14/20 08:03 Anion Gap 8 MMOL/L (8-16) 07/14/20 08:03 BUN 39.3 mg/dL (7-18) H 07/14/20 08:03 Creatinine 3.6 mg/dL (0.55-1.3) H 07/14/20 08:03 Calcium 8.0 mg/dL (8.5-10.1) L 07/14/20 08:03 Total Bilirubin 0.5 mg/dL (0.2-1) 07/14/20 08:03 AST 18 U/L (15-37) 07/14/20 08:03 ALT 49 U/L (13-61) 07/14/20 08:03 Alkaline Phosphatase 290 U/L (45-117) H 07/14/20 08:03 Total Protein 5.9 g/dl (6.4-8.2) L 07/14/20 08:03 Albumin 3.0 g/dl (3.4-5.0) L 07/14/20 08:03 ASSESSMENT AND PLAN: 59 yo lady with Mhx of ESRD s/p Renal transplant (unknown cause of failure,in 2000 now with progressive decline in renal function, 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 -requesting ID input regarding treatment HTN DM DVT prophylaxis
[2020-07-14] MEDS: PANTOPRAZOLE SODIUM 40 MG VIAL IVPUSH SCH ×2 (13:33→13:45)
[2020-07-14] MEDS: TACROLIMUS ANHYDROUS 1 MG CAPSULE PO SCH (13:36)
[2020-07-14] MEDS: LABETALOL HCL 100 MG TABLET (FP) PO SCH ×2 (13:37→14:28)
--- NOTE | 2020-07-14 13:59 | DS ---
Physical Exam: SUBJECTIVE: Patient seen and examined at bedside. No acute events overnight. OBJECTIVE: Vital Signs Period Temp Pulse Resp BP Sys/Villanueva Pulse Ox Last 24 Hr 97.4 F-99.1 F 60-88 14-20 112-171/67-90 95-100 PHYSICAL EXAM GENERAL: AAOx3, in no acute distress, permacath in place HEENT: NCAT, PERRLA, EOMI, sclera anicteric, conjunctiva clear, oropharynx clear w/o exudates. MMM. NECK: Normal ROM, supple, no lymphadenopathy, JVD, or masses LUNGS: CTABL no wheezes/ rhonchi/ rales. No distress, speaks in full sentences. No increased work of breathing. HEART: RRR, normal S1 S2, no M/R/G, peripheral pulses 2+ and equal b/l ABDOMEN: Soft, NTND, + BS. No guarding or rebound. No hepatomegaly or splenomegaly. MSK: ROM WNL EXTREMITIES: Normal inspection. No peripheral edema. No clubbing or cyanosis. NEUROLOGICAL: CN II-XII intact. Normal speech, no focal sensorimotor deficits. SKIN: Warm, Dry, normal turgor, no rashes or lesions noted LABS Laboratory Results - last 24 hr CBC, BMP 07/14/20 08:03 07/14/20 08:03 07/13/20 07/14/20 07/14/20 17:37 00:43 06:05 WBC RBC Hgb Hct MCV MCH MCHC RDW Plt Count MPV Sodium Potassium Chloride Carbon Dioxide Anion Gap BUN Creatinine Est GFR (CKD-EPI)AfAm Est GFR (CKD-EPI)NonAf POC Glucometer 285 139 85 Random Glucose Calcium Phosphorus Magnesium Total Bilirubin AST ALT Alkaline Phosphatase Total Protein Albumin 07/14/20 07/14/20 07/14/20 08:03 08:03 12:56 WBC 10.4 H RBC 3.00 L Hgb 8.7 L Hct 26.3 L MCV 87.5 MCH 29.0 MCHC 33.2 RDW 13.6 Plt Count 223 MPV 8.1 Sodium 142 Potassium 3.7 Chloride 106 Carbon Dioxide 28 Anion Gap 8 BUN 39.3 H Creatinine 3.6 H Est GFR (CKD-EPI)AfAm 15.07 Est GFR (CKD-EPI)NonAf 13.00 POC Glucometer 124 Random Glucose 86 Calcium 8.0 L Phosphorus 4.8 Magnesium 2.0 Total Bilirubin 0.5 AST 18 ALT 49 Alkaline Phosphatase 290 H Total Protein 5.9 L Albumin 3.0 L HOSPITAL COURSE: 59 yo lady with PMX of ESRD s/p Renal transplant (unknown cause of failure,in 2000 now with progressive decline in renal function, 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 Patient had multiple failed AV Fistuas. Patient had a permacath placed and dialysis was initated and tolerated well. Patient was set up for outpatient Dialysis at [facility] and outpatient follow up with Dr. Morris. Date of Admission:07/13/20 07/13/20-EKG- NSR with Septal Infarct. 07/13/20-No acute chest pathology. slight right rotation. 07/13/20-Flourscopy- 2 views of the chest have been submitted during a R permacath insertion. The tip is inserted in the right atrium. 07/13/20-No pneumothorax is seen. S/p interval permacath insertion. Date of Discharge: 07/14/20 Minutes to complete discharge: 36 Discharge Summary Problems reviewed: Yes Reason For Visit: ACIDOSIS,UREMIA,ESRD Current Active Problems Uremia (Acute) Condition: Stable - Instructions Diet, Activity, Other Instructions: Your visit: You were admitted to the hospital for dialysis access. We placed a permacath for dialysis access in your neck and then you received dialysis. You will continue to receive dialysis through your permacath. Your next dialysis will be on Friday at [facility]. Medications changes: -Dr. Morris will start to decrease your steroid dosage when you see him on Friday07/18/20. -Continue to take all other home medications as prescribed. Follow up: - Please follow-up with Dr. Morris, your doll wig maker, on Friday07/18/20. -Please follow-up with Dr. Godinez, your general surgeon, in 1 week. - Visit with your Primary Care Provider in 1 weeks. If you do not have a primary care provider you may make an appointment with Dr. Rowe at the [facility] clinic located at [address] [place] [address] ([phone]). Additional Instructions: -You are being discharged to your home. -keep area around permacath clean and dry -Please return to the Emergency Department if you experience worsening pain, fevers, chills, shortness of breath, or chest pain, or if you experience any worsening, new or concerning symptoms. Referrals: Mikael Rowe MD [Staff Physician] - 1 Week (f/u ESRD ) Otoniel Morris MD [Staff Physician] - 07/18/20 (f/u ESRD; dialysis ) Robby Godinez MD [Staff Physician] - 1 Week (f/u permacath placement) Disposition: HOME - Home Medications Comprehensive Discharge Medication List: Ambulatory Orders Labetalol HCl 200 mg PO TID 05/06/12 Nifedipine [Procardia Xl] 30 mg PO BID 05/06/12 Tacrolimus 4 mg PO AM 05/06/12 predniSONE [Deltasone -] 5 mg PO DAILY 05/06/12 Glipizide 5 mg PO DAILY 09/17/19 Cinacalcet HCl [Sensipar -] 30 mg PO PRN 07/13/20 Atorvastatin Ca [Lipitor] 20 mg PO DAILY 07/14/20 Tacrolimus 5 mg HS 07/14/20 This patient is new to me today: Yes Date on this admission: 07/14/20 Emergency Visit: No Critical Care patient: No - Discharge Referral Referred to [facility] No ATTENDING PHYSICIAN STATEMENT I saw and evaluated the patient. I reviewed the resident's note and discussed the case with the resident. I agree with the resident's findings and plan as documented. SUBJECTIVE: OBJECTIVE: ASSESSMENT AND PLAN:
--- NOTE | 2020-07-14 15:09 | PN ---
Progress Note (short form) - Note Progress Note: ID CONSULT DICTATED ASYMPTOMATIC BACTERURIA S/P RENAL TRANSPLANT ON IMMUNOSUPPRESSIVE THERAPY IN LIGHT OF CONTINUED IMMUNOSUPPRESSIVE TX WITH TREAT WITH SHORT COURSE LEVAQUIN LEVAQUIN 250MG PO Q48H X 4 DOSES
[2020-07-14 15:26] VITALS: BP 125/56; PULSE 93; TEMP 99.2
--- NOTE | 2020-07-14 15:42 | PN ---
Progress Note, Physician History of Present Illness: Seen and examined at the bedside awake and alert s/p dialysis yesterday evening and this AM offers no acute complaints no sob, cp, fever, chills, N/V/D - Current Medication List Current Medications: Active Medications Acetaminophen (Tylenol -) 325 mg PO Q4H PRN PRN Reason: PAIN LEVEL 1-5 Stop: 07/16/20 17:44 Last Admin: 07/13/20 21:55 Dose: 325 mg Documented by: Fentanyl (Sublimaze Injection -) 25 mcg IVPUSH [id number] PRN PRN Reason: PAIN-PACU ORDER X 4 DOSES ONLY Last Admin: 07/13/20 17:10 Dose: 25 mcg Documented by: Sodium Chloride (Normal Saline -) 250 mls @ 3,000 mls/hr IV PRN PRN PRN Reason: Hypotension during Dialysis Stop: 07/14/20 12:33 Sodium Chloride (Normal Saline -) 250 mls @ 3,000 mls/hr IV PRN PRN PRN Reason: Hypotension during Dialysis Stop: 07/15/20 09:46 Insulin Aspart (Novolog Vial Sliding Scale -) 1 vial SQ TIDAC [facility]; Protocol Last Admin: 07/14/20 12:57 Dose: Not Given Documented by: Labetalol HCl (Normodyne -) 200 mg PO TID [facility] Last Admin: 07/14/20 14:28 Dose: Not Given Documented by: Levofloxacin (Levaquin -) 250 mg PO Q48H [facility] Nifedipine (Procardia Xl -) 30 mg PO DAILY [facility] Last Admin: 07/14/20 13:37 Dose: 30 mg Documented by: Ondansetron HCl (Zofran Injection) 4 mg IVPUSH Q6H PRN PRN Reason: NAUSEA AND/OR VOMITING Oxycodone HCl (Roxicodone -) 5 mg PO Q4H PRN PRN Reason: PAIN LEVEL 1-5 Last Admin: 07/13/20 21:56 Dose: 5 mg Documented by: Pantoprazole Sodium (Protonix Iv) 40 mg IVPUSH DAILY [facility] Last Admin: 07/14/20 13:45 Dose: Not Given Documented by: Prednisone (Deltasone -) 5 mg PO DAILY [facility] Last Admin: 07/14/20 13:37 Dose: 5 mg Documented by: Tacrolimus (Prograf) 5 mg PO BID [facility] Last Admin: 07/14/20 13:36 Dose: 5 mg Documented by: - Objective Vital Signs: Vital Signs Temperature 99.2 F 07/14/20 15:00 Pulse Rate 93 H 07/14/20 15:00 Respiratory Rate 18 07/14/20 15:00 Blood Pressure 125/56 L 07/14/20 15:00 O2 Sat by Pulse Oximetry (%) 98 07/14/20 15:00 Constitutional: Yes: No Distress HENT: Yes: Atraumatic Neck: Yes: Supple Respiratory: Yes: Regular Gastrointestinal: Yes: Soft. 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 1. 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 Anemia in CKD. 3. Renal Transplant 4. Leukocytosis w/o fever 5. Hypertension 6. DM type 2 Tolerated 2 sessions of dialysis while inpatient. Clinically stable and will resume dialysis as an outpatient. Continue renal diet as an outpatient. Continue Tacrolimus and prednisone for now, will gradually titrate off immunosuppressive medications as an outpatient. US of the transplanted kidneys showed some cysts on the left transplanted kidney w/o evidence of hydronephrosis or masses. Continue home antihypertensives Continue Sensipar 30mg daily continue oral antibiotics for UTI as per ID Stable for discharge today and will start outpatient dialysis at [facility] next week. Thank you Otoniel Morris DO
--- NOTE | 2020-07-14 16:32 | CONS ---
DATE OF CONSULTATION: DATE OF DICTATION: 07/14/2020 INFECTIOUS DISEASE CONSULTATION HISTORY OF PRESENT ILLNESS: A 59-year-old female evaluated for urinary tract infection. The patient underwent a renal transplant approximately 10 years ago. 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 She was admitted to the hospital on July 13, 2020, with acute kidney failure. She was taken to the operating room where a PermCath was inserted. She was started on hemodialysis. Urine culture is growing a nonlactose payroll bookkeeper. Patient denies any dysuria or hematuria. No complaints of suprapubic or flank pain. She has been afebrile. White blood cell count is mildly elevated. PAST MEDICAL HISTORY: Positive for end-stage renal disease now back on hemodialysis, hypertension, hypothyroidism, noninsulin dependent diabetes mellitus, history of renal cell carcinoma. PAST SURGICAL HISTORY: Status post renal transplant 10 years ago, partial nephrectomy. ALLERGIES: ERYTHROMYCIN. MEDICATION: Include: 1. Erythropoietin. 2. Labetalol. 3. Nifedipine. 4. Oxycodone. SOCIAL HISTORY: She resides in the community. Nonsmoker. SYSTEMS REVIEW: Neurologic: No loss of consciousness, seizure activity, focal weakness. Cardiac: Negative for chest pain or palpitations. Respiratory: Negative for cough or sputum production. Gastrointestinal: Negative vomiting or diarrhea. Genitourinary: As per HPI. LABORATORY DATA: White count 10.4, hematocrit 26.3, platelets 223, creatinine 3.6. Urinalysis: nonlactose payroll bookkeeper. PHYSICAL EXAMINATION: General: On physical examination, she is awake and alert, she is not acutely toxic appearing. Vital signs: Temperature 98.8, blood pressure 149/77, pulse 78 regular, respirations 18 per minute. HEENT: Sclerae anicteric. Cardiovascular: Heart sounds S1, S2. Lungs: Clear. Abdomen: Soft, no suprapubic or flank tenderness. Extremities: Negative for edema. IMPRESSION: 1. Asymptomatic bacteruria. 2. Status post renal transplant with chronic rejection now on hemodialysis. 3. ERYTHROMYCIN allergy. 4. Noninsulin dependent diabetes mellitus. PLAN: Despite asymptomatic bacteruria, will treat with short course of antibiotic therapy in light of continuation of her immunosuppressive medication including Prograf and prednisone. Will prescribe Levaquin 250 p.o. every other day for 4 doses. She will follow up with her gambreler as an outpatient. Thank you for the kind referral. ELLI LYNN M.D. [id number]
[2020-07-17 18:08] LABS: HEP B CORE AB, TOT Negative (Negative)
== END 2020-07-14 16:32 | disposition home or self-care (01) | DRG 673 ==
LOC: JER 09:16 → JERBED 11:18 → J5S 20:11
PROVIDERS: ATTEND Student in an Organized Health Care Education/Training Program
PROC: 05HM33Z Insertion of Infusion Device into Right Internal Jugular Vein, Percutaneous Approach (ICD-10-PCS; 2020-07-13)
PROC: B543ZZA Ultrasonography of Right Jugular Veins, Guidance (ICD-10-PCS; 2020-07-13)
PROC: 5A1D70Z Performance of Urinary Filtration, Intermittent, Less than 6 Hours Per Day (ICD-10-PCS; 2020-07-13)
PROC: 0JH63XZ Insertion of Tunneled Vascular Access Device into Chest Subcutaneous Tissue and Fascia, Percutaneous Approach (ICD-10-PCS; principal; 2020-07-13 15:30)
PROC: 5A1D70Z Performance of Urinary Filtration, Intermittent, Less than 6 Hours Per Day (ICD-10-PCS; 2020-07-14)
DX: I12.0 Hypertensive chronic kidney disease with stage 5 chronic kidney disease or end stage renal disease (principal); N18.6 End stage renal disease; Z94.0 Kidney transplant status; E11.22 Type 2 diabetes mellitus with diabetic chronic kidney disease; Z99.2 Dependence on renal dialysis; D72.829 Elevated white blood cell count, unspecified; D63.1 Anemia in chronic kidney disease
CPT/HCPCS: 36415; 71045-TC-FY; 76000-TC-FY; 76776-TC; 80053; 82803; 82962; 83540; 83550; 83605; 83735; 84100; 84550; 85025; 85027; 85610; 85730; 86704; 86706; 86707; 86708; 86709; 86803; 86850; 86900; 86901; 87086; 87186; 87340; 90732; 93005; 93010; 94760; 99285-25; C9803; G0009; J0885; J1644; U0003

== ENCOUNTER 2020-09-01 06:07 | Day surgery (SDC) | payer OTHER ==
[2020-08-31 11:07] VITALS: BMI 22.8
[2020-09-01] MEDS ORDERED: PAPAVERINE HCL 30 MG/1 ML 10 ML VIAL NR ONE (14:11)
[2020-09-01] MEDS ORDERED: HEPARIN NA (PORCINE) 5,000 UNITS/ML 1ML VIAL ONE (14:11)
[2020-09-01] MEDS ORDERED: POVIDONE-IODINE OINTMENT 10% - 28.4 GM TUBE ONE (14:11)
[2020-09-01] MEDS ORDERED: LIDOCAINE HCL 1%, 10 MG/ML (20ML VIAL) ONE (14:11)
[2020-09-01] MEDS ORDERED: DEXTROSE 50%-WATER 25 GM/50 ML DISP.SYRIN ONE (15:25)
[2020-09-01] MEDS ORDERED: MIDAZOLAM HCL 2 MG/2 ML SINGLE DOSE VIAL ONE (16:52)
[2020-09-01] MEDS ORDERED: SUCCINYLCHOLINE CHLORIDE 200 MG/10 ML SYRINGE ONE (16:55)
[2020-09-01] MEDS ORDERED: PROPOFOL 20 ML ONE ×5 (16:55→18:24)
[2020-09-01] MEDS ORDERED: ceFAZolin SODIUM 1 GM VIAL IVPB ONE (17:14)
[2020-09-01] MEDS ORDERED: ceFAZolin SODIUM 1 GM VIAL ONE (18:54)
[2020-09-01] MEDS ORDERED: LACTATED RINGERS SOLUTION 1,000 ML IV SCH (19:00)
[2020-09-01 20:51] VITALS: BP 140/73; PULSE 79; TEMP 97.4
== END 2020-09-01 21:00 | disposition home or self-care (01) ==
LOC: JASU-SURG 06:07
PROVIDERS: ATTEND Surgery
PROC: 0JW Subcutaneous Tissue and Fascia, Revision (ICD-10-PCS; 2020-09-01)
PROC: 05WY3JZ Revision of Synthetic Substitute in Upper Vein, Percutaneous Approach (ICD-10-PCS; 2020-09-01)
PROC: 05WY3JZ Revision of Synthetic Substitute in Upper Vein, Percutaneous Approach (ICD-10-PCS; principal; 2020-09-01 15:30)
DX: T82.590A Other mechanical complication of surgically created arteriovenous fistula, initial encounter (principal); I12.0 Hypertensive chronic kidney disease with stage 5 chronic kidney disease or end stage renal disease; E11.22 Type 2 diabetes mellitus with diabetic chronic kidney disease; N18.6 End stage renal disease; Z99.2 Dependence on renal dialysis; Z94.0 Kidney transplant status
CPT/HCPCS: 36415; 82947; 82962; 84132; 94760; J1644

== ENCOUNTER 2020-12-08 13:10 | Inpatient (IN) | payer OTHER ==
[2020-12-08 13:29] VITALS: BMI 21.9
[2020-12-08] MEDS ORDERED: oxyCODONE HCL 5 MG TABLET PO PRN (13:40)
[2020-12-08 15:09] LABS: EOS % 3.6 % (0-4.5); HEMATOCRIT 31.4 % (32.4-45.2); HEMOGLOBIN 9.8 GM/dL (10.7-15.3); LYMPH % 25.1 % (8-40); MCH 27.3 pg (25.7-33.7); MCHC 31.1 g/dl (32.0-36.0); MEAN CELL VOLUME 87.9 fl (80-96); MEAN PLT VOLUME 7.5 fl (7.5-11.1); MONO % 6.3 % (3.8-10.2); PLATELET COUNT 201 K/MM3 (134-434); RBC 3.58 M/mm3 (3.60-5.2); WHITE BLOOD COUNT 7.4 K/mm3 (4.0-10.0)
[2020-12-08] MEDS ORDERED: HEPARIN NA (PORCINE) 5,000 UNITS/ML 1ML VIAL ONE ×2 (15:11→15:24)
[2020-12-08 15:23] LABS: PROTHROMBIN TIME (PATIENT) 12.1 SEC (9.7-13.0)
[2020-12-08 15:24] LABS: POTASSIUM 5.1 mmol/L (3.5-5.1)
[2020-12-08 15:25] LABS: CALCIUM 8.7 mg/dL (8.5-10.1)
[2020-12-08 15:26] LABS: BLOOD UREA NITROGEN 33.6 mg/dL (7-18)
[2020-12-08] MEDS ORDERED: MIDAZOLAM HCL 2 MG/2 ML SINGLE DOSE VIAL ONE ×2 (15:32→16:04)
[2020-12-08 15:45] LABS: CREATININE 7.7 mg/dL (0.55-1.3)
[2020-12-08] MEDS ORDERED: ceFAZolin SODIUM 1 GM VIAL ONE (16:07)
[2020-12-08] MEDS ORDERED: LIDOCAINE HCL 1% PRESERVATIVE FREE - 30ML VIAL IJ ONE (16:10)
[2020-12-08] MEDS ORDERED: IOHEXOL 300 MG/ML INFUS..BTL IV ONE (16:15)
[2020-12-08] MEDS ORDERED: HEPARIN NA (PORCINE) 5,000 UNITS/ML 1ML VIAL IVPUSH ONE (16:20)
[2020-12-08] MEDS ORDERED: ONDANSETRON 4 MG/2 ML VIAL IVPUSH PRN (16:39)
[2020-12-08] MEDS ORDERED: SODIUM CHLORIDE 1,000 ML IV SCH (16:45)
[2020-12-08 17:50] VITALS: PULSE 79; TEMP 97.6
[2020-12-08 18:00] VITALS: BP 179/79
[2020-12-08] MEDS ORDERED: ATORVASTATIN CA 20 MG TABLET (FP) PO SCH (22:00)
[2020-12-09] MEDS ORDERED: LABETALOL HCL 100 MG TABLET (FP) PO SCH (10:00)
[2020-12-09] MEDS ORDERED: glipiZIDE 5 MG TABLET (FP) PO SCH (10:00)
[2020-12-09] MEDS ORDERED: CINACALCET HCL 30 MG TAB (FP) PO SCH (10:00)
[2020-12-09] MEDS ORDERED: NIFEdipine E.R. 30 MG TABLET PO SCH (10:00)
== END 2020-12-08 18:46 | disposition home or self-care (01) | DRG 981 ==
LOC: JER 13:10 → JOR 13:10 → J2C 13:43
PROVIDERS: ADMIT Surgery; ATTEND Surgery
PROC: 02H633Z Insertion of Infusion Device into Right Atrium, Percutaneous Approach (ICD-10-PCS; 2020-12-08)
PROC: B50WYZZ Plain Radiography of Dialysis Shunt/Fistula using Other Contrast (ICD-10-PCS; 2020-12-08)
PROC: 027V3ZZ Dilation of Superior Vena Cava, Percutaneous Approach (ICD-10-PCS; principal; 2020-12-08 16:00)
PROC: 02PY33Z Removal of Infusion Device from Great Vessel, Percutaneous Approach (ICD-10-PCS; 2020-12-08 16:00)
DX: T82.41XA Breakdown (mechanical) of vascular dialysis catheter, initial encounter (principal); N18.6 End stage renal disease; I12.0 Hypertensive chronic kidney disease with stage 5 chronic kidney disease or end stage renal disease; E11.22 Type 2 diabetes mellitus with diabetic chronic kidney disease; Y83.8 Other surgical procedures as the cause of abnormal reaction of the patient, or of later complication, without mention of misadventure at the time of the procedure; Z99.2 Dependence on renal dialysis; E03.9 Hypothyroidism, unspecified; E78.5 Hyperlipidemia, unspecified; D64.9 Anemia, unspecified
CPT/HCPCS: 36415; 71045-TC-FY; 76000-TC-FY; 80048; 85025; 85610; 86850; 86900; 86901; 93005; 93010; 94760; 99285-25; C9803; J1644; U0003

== ENCOUNTER 2020-12-25 04:15 | Day surgery (SDC) | payer OTHER ==
[2020-12-21 13:21] VITALS: BMI 21.0
[2020-12-25 10:33] LABS: POTASSIUM 3.8 mmol/L (3.5-5.1)
[2020-12-25] MEDS ORDERED: PAPAVERINE HCL 30 MG/1 ML 10 ML VIAL NR ONE (10:41)
[2020-12-25] MEDS ORDERED: HEPARIN NA (PORCINE) 5,000 UNITS/ML 1ML VIAL ONE (10:41)
[2020-12-25] MEDS ORDERED: LIDOCAINE HCL 1%, 10 MG/ML (20ML VIAL) ONE (10:41)
[2020-12-25] MEDS ORDERED: MIDAZOLAM HCL 2 MG/2 ML SINGLE DOSE VIAL ONE (11:42)
[2020-12-25] MEDS ORDERED: ceFAZolin SODIUM 1 GM VIAL IVPB ONE (11:50)
[2020-12-25] MEDS ORDERED: LIDOCAINE HCL 1%, 10 MG/ML (20ML VIAL) SQ ONE ×2 (11:55)
[2020-12-25] MEDS ORDERED: HEPARIN NA (PORCINE) 5,000 UNITS/ML 1ML VIAL SQ ONE (11:55)
[2020-12-25] MEDS ORDERED: PROPOFOL 20 ML ONE (12:02)
[2020-12-25] MEDS ORDERED: LIDOCAINE HCL/PF 2% SDV 5ML VIAL ONE (12:07)
[2020-12-25] MEDS ORDERED: oxyCODONE HCL 5 MG TABLET PO ONE (14:18)
[2020-12-25] MEDS ORDERED: oxyCODONE HCL 5 MG TABLET PO PRN (14:43)
[2020-12-25] MEDS ORDERED: ACETAMINOPHEN INJECTION 100 ML IVPB ONE (14:44)
[2020-12-25] MEDS ORDERED: ACETAMINOPHEN 1000 MG/100 ML VIAL (NON FORMULARY) IVPB ONE (14:55)
[2020-12-25] MEDS ORDERED: ONDANSETRON *ODT* 4 MG TABLET ONE (17:12)
[2020-12-25] MEDS ORDERED: ONDANSETRON *ODT* 4 MG TABLET SL ONE (17:17)
[2020-12-25 17:37] VITALS: BP 168/78; PULSE 70; TEMP 97.4
== END 2020-12-25 17:47 | disposition home or self-care (01) ==
LOC: JASU-SURG 04:15
PROVIDERS: ATTEND Surgery
PROC: 05WY03Z Revision of Infusion Device in Upper Vein, Open Approach (ICD-10-PCS; principal; 2020-12-25 11:30)
DX: I12.0 Hypertensive chronic kidney disease with stage 5 chronic kidney disease or end stage renal disease (principal); E11.22 Type 2 diabetes mellitus with diabetic chronic kidney disease; N18.6 End stage renal disease; Z99.2 Dependence on renal dialysis; Z79.84 Long term (current) use of oral hypoglycemic drugs
CPT/HCPCS: 36415; 82947; 84132; J0131; J1644; Q0162

== ENCOUNTER 2021-01-29 06:55 | Inpatient (IN) | payer OTHER ==
[2021-01-29] MEDS ORDERED: NITROGLYCERIN 50MG/D5W 250ML 50 MG/250 ML ML IVPB SCH (07:30)
[2021-01-29 07:49] LABS: VENOUS BASE EXCESS -5.3 mmol/L (-2-2); VENOUS O2 SATURATION 98.6 % (70-80); VENOUS PCO2 42.2 mmHg (38-52); VENOUS PH 7.309 (7.310-7.410)
[2021-01-29 08:08] LABS: BASO % 0.9 % (0-2.0); EOS % 2.9 % (0-4.5); HEMATOCRIT 40.2 % (32.4-45.2); HEMOGLOBIN 12.9 GM/dL (10.7-15.3); LYMPH % 15.3 % (8-40); MCH 28.2 pg (25.7-33.7); MCHC 32.2 g/dl (32.0-36.0); MEAN CELL VOLUME 87.4 fl (80-96); MEAN PLT VOLUME 7.7 fl (7.5-11.1); MONO % 3.2 % (3.8-10.2); NEUT % 77.7 % (42.8-82.8); PLATELET COUNT 146 K/MM3 (134-434); WHITE BLOOD COUNT 9.3 K/mm3 (4.0-10.0)
[2021-01-29 08:15] LABS: CHLORIDE 105 mmol/L (98-107); SODIUM 132 mmol/L (136-145)
[2021-01-29 08:20] LABS: CALCIUM 8.9 mg/dL (8.5-10.1)
[2021-01-29 08:21] LABS: ALBUMIN 3.9 g/dl (3.4-5.0); BLOOD UREA NITROGEN 58.9 mg/dL (7-18); CO2 21 mmol/L (21-32); GLUCOSE,RANDOM 221 mg/dL (74-106); MAGNESIUM 3.2 mg/dL (1.8-2.4)
[2021-01-29 08:24] LABS: SGOT/AST 62 U/L (15-37); SGPT/ALT 29 U/L (13-61)
[2021-01-29 08:25] LABS: BILIRUBIN,TOTAL 0.8 mg/dL (0.2-1); TOT PROT 7.9 g/dl (6.4-8.2)
[2021-01-29 08:26] LABS: ALK PHOS 227 U/L (45-117)
[2021-01-29] MEDS ORDERED: CALCIUM GLUCONATE 10% - 1,000 MG/10 ML VIAL IVPUSH ONE (08:27)
[2021-01-29] MEDS ORDERED: NITROGLYCERIN 25MG/D5W 250ML 25 MG/250 ML ML IVPB ONE (08:28)
[2021-01-29] MEDS ORDERED: CALCIUM GLUCONATE 10% - 1,000 MG/10 ML VIAL ONE ×2 (08:31→11:56)
[2021-01-29 08:35] LABS: ANION GAP 6 MMOL/L (8-16); CREATININE 9.3 mg/dL (0.55-1.3)
[2021-01-29] MEDS ORDERED: INSULIN REGULAR HUMAN 100 UNITS/ML *VIAL IVPUSH ONE (08:37)
[2021-01-29] MEDS ORDERED: DEXTROSE 50%-WATER - 25 GM/50 ML VIAL IVPUSH ONE (08:37)
[2021-01-29] MEDS ORDERED: ALBUTEROL SO4 0.083% IH SOL 2.5 MG/3 ML VIAL.NEB. NEB ONE ×2 (08:38→08:40)
[2021-01-29] MEDS ORDERED: METOCLOPRAMIDE HCL INJECTION 10 MG/2 ML VIAL IVPUSH ONE (08:39)
[2021-01-29] MEDS ORDERED: DEXTROSE 50%-WATER 25 GM/50 ML DISP.SYRIN ONE (08:40)
[2021-01-29] MEDS ORDERED: METOCLOPRAMIDE HCL INJECTION 10 MG/2 ML VIAL ONE (08:43)
[2021-01-29] MEDS ORDERED: SODIUM CHLORIDE 250 ML IV PRN (09:32)
[2021-01-29 10:43] LABS: PHOSPHOROUS 3.7 mg/dL (2.5-4.9); SGOT/AST 25 U/L (15-37)
[2021-01-29 10:45] LABS: ALK PHOS 210 U/L (45-117)
[2021-01-29] MEDS ORDERED: CALCIUM GLUCONATE 10% - 1,000 MG/10 ML VIAL IVPB ONE (11:52)
[2021-01-29] MEDS: INSULIN SLIDING SCALE (NOVOLOG) 1 VIAL SQ SCH (17:17)
[2021-01-29] MEDS: LABETALOL HCL 200 MG TABLET (FP) PO SCH (21:09)
[2021-01-29] MEDS: HEPARIN NA (PORCINE) 5,000 UNITS/ML 1ML VIAL SQ SCH (21:09)
[2021-01-29] MEDS ORDERED: CHLORHEXIDINE GLUCONATE 4% CLEANSER FOR DECOLONIZATION TP SCH ×2 (22:00)
[2021-01-29] MEDS ORDERED: MUPIROCIN 2% TOPICAL OINTMENT FOR DECOLONIZATION NS SCH ×2 (22:00)
[2021-01-30] MEDS ORDERED: amLODIPine BESYLATE 10 MG TABLET (FP) PO ONE (06:15)
[2021-01-30] MEDS: INSULIN SLIDING SCALE (NOVOLOG) 1 VIAL SQ SCH (06:34)
[2021-01-30 06:44] LABS: BASO % 0.8 % (0-2.0); HEMATOCRIT 38.9 % (32.4-45.2); HEMOGLOBIN 12.6 GM/dL (10.7-15.3); LYMPH % 29.1 % (8-40); MCHC 32.3 g/dl (32.0-36.0); MEAN CELL VOLUME 86.6 fl (80-96); MEAN PLT VOLUME 7.8 fl (7.5-11.1); MONO % 6.6 % (3.8-10.2); NEUT % 60.5 % (42.8-82.8); PLATELET COUNT 118 K/MM3 (134-434); RBC 4.49 M/mm3 (3.60-5.2); WHITE BLOOD COUNT 6.3 K/mm3 (4.0-10.0)
[2021-01-30 06:52] LABS: INR 1.03 (0.83-1.09); PROTHROMBIN TIME (PATIENT) 12.4 SEC (9.7-13.0)
[2021-01-30 06:54] LABS: ACTIVATED PTT 29.7 SECONDS (25.2-36.5)
[2021-01-30 07:03] LABS: ALBUMIN 3.2 g/dl (3.4-5.0); CALCIUM 7.7 mg/dL (8.5-10.1)
[2021-01-30 07:06] LABS: CREATININE 4.9 mg/dL (0.55-1.3)
[2021-01-30 07:07] LABS: PHOSPHOROUS 4.2 mg/dL (2.5-4.9)
[2021-01-30 07:08] LABS: BILIRUBIN,TOTAL 0.9 mg/dL (0.2-1); TOT PROT 6.6 g/dl (6.4-8.2)
[2021-01-30 07:21] LABS: BLOOD UREA NITROGEN 20.3 mg/dL (7-18)
[2021-01-30] MEDS: HEPARIN NA (PORCINE) 5,000 UNITS/ML 1ML VIAL SQ SCH (09:13)
[2021-01-30] MEDS: LABETALOL HCL 200 MG TABLET (FP) PO SCH (09:13)
[2021-01-30] MEDS ORDERED: FAMOTIDINE 40 MG TABLET PO SCH (10:00)
[2021-01-30] MEDS ORDERED: amLODIPine BESYLATE 10 MG TABLET (FP) PO SCH (10:00)
[2021-01-30] MEDS ORDERED: LABETALOL HCL 100 MG TABLET (FP) PO SCH (10:00)
[2021-01-30] MEDS ORDERED: CALCITRIOL 0.25 MCG CAPSULE (FP) PO SCH (10:00)
[2021-01-30 13:14] VITALS: BMI 21.9
[2021-01-30 14:15] VITALS: BP 155/67; PULSE 79; TEMP 98.2
== END 2021-01-30 18:59 | disposition home or self-care (01) | DRG 291 ==
LOC: JER 06:55 → JERBED 08:49 → JICU 13:21
PROVIDERS: ADMIT Internal Medicine; ATTEND Internal Medicine
PROC: 5A1D70Z Performance of Urinary Filtration, Intermittent, Less than 6 Hours Per Day (ICD-10-PCS; principal; 2021-01-29)
DX: I13.2 Hypertensive heart and chronic kidney disease with heart failure and with stage 5 chronic kidney disease, or end stage renal disease (principal); N18.6 End stage renal disease; J96.01 Acute respiratory failure with hypoxia; I50.9 Heart failure, unspecified; D63.1 Anemia in chronic kidney disease; E11.22 Type 2 diabetes mellitus with diabetic chronic kidney disease; E03.9 Hypothyroidism, unspecified; E78.00 Pure hypercholesterolemia, unspecified; E87.5 Hyperkalemia; E87.70 Fluid overload, unspecified; Z90.5 Acquired absence of kidney; Z85.53 Personal history of malignant neoplasm of renal pelvis; Z99.2 Dependence on renal dialysis
CPT/HCPCS: 36415; 71045-TC-FY; 80053; 82550; 82803; 82962; 83036; 83735; 84075; 84100; 84132; 84443; 84450; 84484; 85025; 85610; 85730; 86803; 87340; 93005; 93010; 93306-TC; 94660; 99285-25; C9803; J1644; U0003; U0005

== ENCOUNTER 2021-04-02 15:48 | Emergency (ER) | payer OTHER ==
[2021-04-02 15:59] VITALS: BP 164/80; PULSE 72; TEMP 97.5; BMI 27.8
[2021-04-02] MEDS ORDERED: ACETAMINOPHEN 1000 MG/100 ML VIAL (NON FORMULARY) IVPB ONE (16:44)
[2021-04-02 18:11] LABS: BASO % 0.7 % (0-2.0); HEMATOCRIT 34.9 % (32.4-45.2); HEMOGLOBIN 11.4 GM/dL (10.7-15.3); LYMPH % 22.7 % (8-40); MCH 27.9 pg (25.7-33.7); MCHC 32.8 g/dl (32.0-36.0); MEAN CELL VOLUME 85.1 fl (80-96); MONO % 4.8 % (3.8-10.2); NEUT % 69.8 % (42.8-82.8); PLATELET COUNT 164 10^3/uL (134-434); RDW 16.9 % (11.6-15.6); WHITE BLOOD COUNT 7.9 K/mm3 (4.0-10.0)
[2021-04-02 18:37] LABS: ALBUMIN 3.6 g/dl (3.4-5.0); CALCIUM 8.7 mg/dL (8.5-10.1)
[2021-04-02 18:38] LABS: BLOOD UREA NITROGEN 25.1 mg/dL (7-18); MAGNESIUM 2.2 mg/dL (1.8-2.4)
[2021-04-02 18:41] LABS: CREATININE 3.9 mg/dL (0.55-1.3); PHOSPHOROUS 3.3 mg/dL (2.5-4.9)
[2021-04-02 18:42] LABS: BILIRUBIN,TOTAL 0.6 mg/dL (0.2-1); TOT PROT 6.9 g/dl (6.4-8.2)
== END 2021-04-02 19:55 | disposition home or self-care (01) ==
LOC: JER 15:48
DX: R11.10 Vomiting, unspecified (principal); N18.6 End stage renal disease; Z99.2 Dependence on renal dialysis
CPT/HCPCS: 36415; 80053; 83735; 84100; 85025; 93005; 93010; 99284-25; C9803; U0003; U0005